=== PATIENT | female | born 1935 | race Caucasian/White ===

== ENCOUNTER 2016-03-18 05:10 | Day surgery (SDC) | payer OTHER, BC ==
[~2016-03-18] VITALS: Ht 149.9 cm; Wt 54.4 kg
--- NOTE | ~2016-03-18 | O ---
[facility] [place] [address] OPERATIVE REPORT Name: KAMILAH ROWLAND ANN Room #: [facility] M..#: [id number] Admission: 03/18/16 Attend Phys: Jack Murcia MD Discharge: 03/18/16 Date of : 31 Report #: [id number] THIS REPORT FOR: //name// CC: Sridhar Murcia DATE OF SERVICE: 03/18/2016 PREOPERATIVE DIAGNOSIS: Suspicious left breast mass, previous lumpectomy for carcinoma in the past. POSTOPERATIVE DIAGNOSIS: Suspicious left breast mass, previous lumpectomy for carcinoma in the past, final pathology pending. OPERATION: 1. Left breast segmental resection. 2. Resection additional skin and breast tissue for better margins. 3. Oncoplastic closure. SURGEON: Jack Murcia MD. LABORER CHEESEMAKING: Medical student MS Jose Guadalupe3. SECOND MEAT MOLDER: Medical student MS Alfredo3. ANESTHESIA: Local with IV sedation. DESCRIPTION OF PROCEDURE: With the patient awake and in the supine position, the left breast was widely prepped with ChloraPrep solution. Sterile drapes were applied. 1% Xylocaine was used as local infiltration anesthesia. The logistics center manager and anesthesiologist administered IV sedation as needed during the procedure. The patient had a suspicious superficial mass coming through the skin at the old lumpectomy scar at the 9 o'clock position in the medial left breast. She had undergone lumpectomy for a cancer in that location in 07/2015. One of the margins was involved and we had recommended going back to get better margins. She refused that and she also refused radiation and adjuvant therapies. She did not come back for followup until recently when she noticed a new somewhat tender mass at that location. I performed a radially oriented elliptical incision in order to remove the entire mass together with surrounding and overlying skin together with the breast tissue at that location in the breast all the way down to and including the pectoralis fascia. The margins were grossly normal. However, I elected to remove additional skin and breast tissue superiorly which was labeled as specimen 2 and additional skin and breast tissue inferiorly which was labeled as specimen 3, both of which were marked with sutures for orientation purposes. I showed these to the pathologist so [address] [address] OPERATIVE REPORT Name: KAMILAH ROWLAND ANN Room #: [facility] M.R.#: [id number] Admission: 03/18/16 Attend Phys: Jack Murcia MD Discharge: 03/18/16 Date of : 31 Report #: [id number] that she could be acquainted with the orientation of the various specimens. The breast tissue was mobilized for oncoplastic closure. It was estimated that greater than 35 square cm of tissue were mobilized. Hemostasis was obtained using electrocautery. The breast tissue and subcutaneous tissues were approximated using interrupted 3-0 Vicryl. It was apparent that the patient had a dog ear at the medial corner of the incision, so I removed additional skin and subcutaneous fat at that location to give her a more pleasing cosmetic outcome. That was submitted as specimen 4. The closure was completed. Sterile dressings were applied. The patient tolerated the procedure well and was taken to recovery in satisfactory condition. Estimated blood loss was 20 mL. <ELECTRONICALLY SIGNED> By: Jack Murcia MD 03/28/16 1827 1416 1441 Jack Murcia MD /nt
--- NOTE | ~2016-03-18 | S ---
[facility] [address] [place] [address] SURGICAL PATH RPT PROCEDURE Name: KAMILAH ROWLAND ANN Room #: DEP [facility] M.R.#: [id number] Admission: 03/18/16 Date of : 31 Discharge: 03/18/16 Report #: [id number] Path Case #: [id number] PATHOLOGY REPORT COLLECTION DATE: 03/18/2016 RECEIVED DATE: 03/19/2016 SUBMITTING PHYS: Dr. Jack Murcia OTHER PHYS: Dr. Sridhar Sharpe SPECIMEN(S) RECEIVED: A.Left breast segmental resection B.Additional left breast skin and breast tissue, superior C.Additional inferior left breast skin and breast tissue D.Additional medial left breast skin * * * * * * * * * * * * FINAL DIAGNOSIS: A. Breast, "#1 left breast segmental resection, long suture lateral, short suture superficial," lumpectomy: - RECURRENT INFILTRATING DUCTAL CARCINOMA GRADE III MEASURING 2.5 CM IN GREATEST DIMENSION, 0.2 CM FROM THE SUPERIOR MARGIN, AND 0.2 CM FROM THE INFERIOR MARGIN COMPLETELY EXCISED. - THE INFILTRATING DUCTAL CARCINOMA INVOLVES THE SKIN AND THE EPIDERMIS WITH ULCERATION (T4b) B. Portion of breast, "#2 additional left breast skin and breast tissue superior, long suture cabrera a new superior margin," lumpectomy: - Skin with underlying breast without atypia or malignancy. - All surgical resection margins are free. C. Portion of breast, "#3 additional inferior left breast skin and breast tissue, long suture cabrera new inferior margin," lumpectomy: - A 1.0 mm focus of infiltrating ductal carcinoma completely excised 1cm from true inferior inked margin. - Immunoperoxidase stain Ae1/AE3 and ER are positive and CD68 is negative ( block C4 ) D. Additional medial left breast skin excision : - Benign skin and subcutaneous tissue. - No evidence of malignancy. Clinical History: Palpable mass Radiologic Finding: Mass or architectural distortion Procedure: Excision without wire-guided localization Lymph Node Sampling: No lymph nodes present Specimen Laterality: Left Tumor Site of Invasive Carcinoma: Central Presence of Invasive Carcinoma: Invasive ductal carcinoma (no special type or not otherwise specified) [address] [address] SURGICAL PATH RPT PROCEDURE Name: KAMILAH ROWLAND Room #: [facility] M.R.#: [id number] Admission: 03/18/16 Date of : 31 Discharge: 03/18/16 Report #: [id number] Path Case #: [id number] Histologic Grade: Tubule formation: Score 3: <10% of tumor area forming glandular/tubular structures Nuclear pleomorphism: Score 3: Vesicular nuclei, often with prominent nucleoli, exhibiting marked variation in size and shape, occasionally with very large and bizarre forms Mitotic Rate: Score 2 (4-7 mitoses per mm2) [place] Histologic Score-Grade III: 8-9 points Ductal Carcinoma In Situ: No DCIS is present Lobular Carcinoma In Situ (LCIS): Not identified Tumor Size: Size of Largest Invasive Carcinoma: Greatest dimension of largest focus of invasion > 1 mm Greatest dimension: 25 mm Skin: Invasive carcinoma directly invades into the dermis or epidermis with skin ulceration (classified as T4b) Satellite foci not identified DCIS does not involve the nipple epidermis No skeletal muscle present Invasive Carcinoma Margins: Margins uninvolved by invasive carcinoma. Distance from closest margin: 10 mm Closest Uninvolved Margin-Inferior DCIS Margins: DCIS not present in specimen Lymph-Vascular Invasion: Not identified Dermal Lymph-Vascular Invasion: Not identified Microcalcifications: Not identified Treatment Effect: No known presurgical therapy [place] lymph node biopsy not performed Estrogen Receptor: Performed on another specimen, number: 840 Progesterone Receptor: Performed on another specimen, number: 840 HER2 Immunoperoxidase Results: Performed on another specimen, number: 840 In Situ Hybridization (FISH or CISH) for HER2 Results: Not performed Other Ancillary Studies: Not performed Primary Tumor (Invasive Carcinoma) (pT): pT4b: Ulceration and/or ipsilateral satellite nodules and/or edema (including peau d`orange) of the skin which do not meet the criteria for inflammatory carcinoma Category (pN): pNX: Regional lymph nodes cannot be assessed [address] [address] SURGICAL PATH RPT PROCEDURE Name: KAMILAH ROWLAND ANN Room #: [facility]P [facility] M.R.#: [id number] Admission: 03/18/16 Date of : 31 Discharge: 03/18/16 Report #: [id number] Path Case #: [id number] Additional Pathologic Findings: none COMMENT: This is a recurrent breast carcinoma. This case is also reviewed by Dr. Kenyetta Fuller. Immunoperoxidase stains were performed on block C4 reveal the following results: AE1/AE3: positive CD68: negative ER : positive. ([facility]:mgr; d/t: 03/20/16) PATHOLOGIST: William Kim M.D. REPORT ELECTRONICALLY SIGNED BY: William Kim M.D. DATE/TIME: 03/21/2016 11:23 * * * * * * * * * * * * GROSS PATHOLOGY: A. The specimen is received fresh labeled "Denisha Rowland, #1 left breast segmental resection, long suture lateral, short suture superficial", oriented by Dr. Jack Murcia. The specimen was collected at 13:42 and put in formalin at 13:50. Dr. Jack Murcia indicated that the patient has a history of breast carcinoma. ([facility]:all; d/t: 03/18-01/2017) Received is a 29 g lumpectomy specimen oriented with a short suture designating the superficial/anterior margin and a long suture designating the lateral margin. The specimen is composed of an ellipse of skin with attached yellow-cassidy lobulated tissue measuring 8.3 cm from medial to lateral, 4.2 cm from superficial/anterior to deep/posterior, and 3.0 cm from superior to inferior. On the epidermal surface, there is a well-circumscribed, raised, partially crusted and pink-cassidy to light cassidy lesion measuring 2.3 x 2.2 x 0.5 cm, which is 0.6 cm from the closest skin margin. The specimen is inked as follows: Superior-blue, inferior-green, lateral-red, medial-yellow, deep/posterior-orange. Sectioning reveals a well-circumscribed white-cassidy mass, directly underlying the aforementioned skin lesion, measuring 2.5 x 2.2 x 1.5 cm. This mass grossly abuts the superficial/anterior margin, grossly abuts the superior margin, grossly approaches the inferior margin, is 2.5 cm from the lateral margin, 2.8 cm from the medial margin, and 2.8 cm from the deep/posterior margin. The remainder the specimen displays no-cassidy fibrofatty breast tissue. The specimen is submitted representatively as follows: A1 most lateral margin A2 mass medial margin [facility] [address] [place] [address] SURGICAL PATH RPT PROCEDURE Name: KASHIFKAMILAH LEWIS ANN Room #: DEP [facility] M.R.#: [id number] Admission: 03/18/16 Date of : 31 Discharge: 03/18/16 Report #: [id number] Path Case #: [id number] entire mass submitted from lateral to medial aspects. The total formalin fixation time is 29 hours and 55 minutes. (CAA; 03/19/2016) B. The specimen is received fresh labeled "Denisha Rowland, #2 additional left breast skin and breast tissue superior long suture cabrera new superior margin". The tissue was collected at 13:45 and was placed in formalin at 13:55. (SHA:all; d/t: 03/18-01/2017) Received is a 9 g lumpectomy specimen oriented with a long suture designating the new margin. The specimen is composed of an ellipse of pale cassidy, grossly unremarkable skin with attached yellow-cassidy lobulated tissue measuring 6.1 x 2.5 x 1.5 cm in greatest dimensions. The specimen is inked as follows: New margin-blue, old margin-black. Sectioning reveals bright yellow, lobulated cut surfaces with no grossly distinct nodules or lesions. The specimen is submitted representatively in cassettes B1 through B6. The cold ischemic time is 10 minutes. The total formalin fixation time is 29 hours and 50 minutes. (CAA; 03/19/2016) C. The specimen is received fresh labeled "Denisha Rowland, #3 additional inferior left breast skin and breast tissue, long suture cabrera new inferior margin". The tissue was collected at 13:51 and was put in formalin at 13:55. Sections will be submitted after fixation. (SHA:all; d/t: ) Received is a 5 g lumpectomy specimen oriented with a long suture designating the new inferior margin. The specimen is composed of an ellipse of pale cassidy, grossly abnormal skin with attached yellow-cassidy lobulated tissue measuring 8.5 x 1.5 x 1.8 cm in greatest dimensions. The specimen is inked as follows: New margin-blue, old margin-black. Sectioning reveals bright yellow, lobulated cut surfaces with no grossly distinct nodules or lesions. The specimen is submitted representatively in cassettes C1 through C6. The cold ischemic time is 4 minutes. The total formalin fixation time is 29 hours and 50 minutes. (CAA; 03/19/2016) D. Received fresh labeled "Denisha Rowland, #4 additional medial left breast skin". No formalin times are given. (SHA:all; d/t: 03/18-01/2017) Received is a 5 g unoriented segment of pale cassidy, grossly normal skin with attached white-cassidy lobulated tissue measuring 5.5 x 3.1 x 1.8 cm in greatest dimensions. The surgical margin is inked black. Sectioning reveals bright yellow, lobulated cut surfaces with no grossly distinct nodules or lesions. Alternating sections are submitted in cassettes D1 through D4. The cold ischemic time and time in formalin are not provided. The time out of formalin is 7:45 PM on 03/19/2016. (CAA; 03/19/2016) [address] [address] SURGICAL PATH RPT PROCEDURE Name: KAMILAH ROWLAND Room #: [facility] M.R.#: [id number] Admission: 03/18/16 Date of : 33 Discharge: 03/18/16 Report #: [id number] Path Case #: [id number] CLINICAL HISTORY: Breast carcinoma. Left breast mass, previous lobectomy for cancer INITIAL CPT CODE(S): A; 95957 B; 93526 C; 79743, 82103, 80237, 22680 D; 67995 Professional services performed by [facility] at [place] [address], [place] [address] Technical services performed by [facility] at [address] [place] [address], [facility] [address], [place] [address]. [facility] [address] [place] [address] PHONE: [phone] DIRECTOR: Garry Moss M.D. * * * END OF REPORT * * *
[~2016-03-18 05:10] MED LIST: ACCURETIC 20-21 EACH PO; ADULT LOW DOSE81 MG PO; AFRIN15 ML NASAL; ARICEPT 5 MG TAB5 MG PO; BACTRIM DS TAB1 EACH PO; CALCIUM 600 MG1 EAC3 PO; CALMOSEPTINE O3.5 GM TP; CLEOCIN HCL150 MG PO; CYMBALTA30 MG PO; DOXYCYCLINE 10100 M1 PO; ENABLEX15 MG PO; HYDROCODON-ACE1 EAC7 PO; IBUPROFEN 200200 M1 PO; IBUPROFEN200 M2 PO; INDOMETHACIN 2525 MG PO; MILK OF MA2400 MG/10 PO; MULTIVITAMINS PO; NORCO 5-325 TA1 EACH PO; PEPCID20 MG PO; PEPCID40 MG PO; PERCOCET 5-3251 EACH PO; PLAVIX 75 MG TA75 M1 PO; PLAVIX 75 MG TA75 MG PO; PRAVACHOL40 MG PO; PRAVASTATIN SOD20 MG PO; PRILOSEC 20 MG20 MG PO; PRILOSEC40 MG PO; QUINU10 PD PO; SULINDAC 150 M150 MG PO; TRAMADOL 50 MG50 MG PO; TRICOR145 MG PO; ULTRAM 50MG TAB50 MG PO; VICODIN 5-5001 EACH PO; VOLTAREN GEL 1100 G1; VOLTAREN GEL 1100 G2 TOP; VYTORIN 10-401 EACH PO; ZOFRAN ODT4 MG PO
[2016-03-18 12:31] LABS: HEMATOCRIT 31.5 % (37.0-47.0); HEMOGLOBIN 10.2 gm/dL (12.0-15.0); MCH 26.8 pg (26.0-34.0); MCHC 32.4 % (28.0-37.0); MCV 82.6 fL (80.0-100.0); RBC 3.81 mil/uL (4.20-5.00); WBC 7.5 thou/uL (4.0-11.0)
[2016-03-18 12:42] LABS: CALCIUM 9.1 mg/dL (8.5-10.1); CREATININE 0.9 mg/dL (0.6-1.3); POTASSIUM 4.2 mmol/L (3.5-5.1)
[2016-03-18 12:48] LABS: ALBUMIN 3.5 g/dL (3.4-5.0); TOTAL BILIRUBIN 0.7 mg/dL (<0.1-1.0); TOTAL PROTEIN 6.8 g/dL (6.4-8.2)
[2016-03-18 13:00] VITALS: BP 148/65
== END 2016-03-18 15:15 | disposition home or self-care (01) ==
LOC: OR 05:10 → TBA 05:10 → OR 09:02
PROVIDERS: Specialist
DX: C50.912 Malignant neoplasm of unspecified site of left female breast (principal); F32.9 Major depressive disorder, single episode, unspecified; F41.9 Anxiety disorder, unspecified; G47.33 Obstructive sleep apnea (adult) (pediatric); I10 Essential (primary) hypertension; K21.9 Gastro-esophageal reflux disease without esophagitis; Z96.652 Presence of left artificial knee joint; Z98.42 Cataract extraction status, left eye; Z98.41 Cataract extraction status, right eye; Z96.1 Presence of intraocular lens; M19.90 Unspecified osteoarthritis, unspecified site
CPT/HCPCS: 50010; 50101; 50386; 50403; 56524; 56526; 62110; 62850; 70005

== ENCOUNTER 2016-05-28 22:23 | Inpatient (IN) | payer OTHER, BC ==
[~2016-05-28] VITALS: Ht 157.5 cm; Wt 54.4 kg
--- NOTE | ~2016-05-28 | H ---
[facility] [place] [address] HISTORY AND PHYSICAL Name: KASHIFNAIMA Room #: 444-P [facility] M.R.#: [id number] Admission: 05/29/16 Attend Phys: Tasneem Serrano Discharge: 06/02/16 Date of : 33 Report #: [id number] THIS REPORT FOR: //name// CC: Shahida Wiseman ATTENDING PHYSICIAN: Dr. Dhara Wiseman. PRIMARY CARE PHYSICIAN: Dr. Sridhar Sharpe. CHIEF COMPLAINT: Low hemoglobin. HISTORY OF PRESENT ILLNESS: The patient is an 80-year-old female with a history of dementia who was therefore a very poor historian and apparently she was noticed to have some blood in her stool, by the staff at her assisted living facility. She had some routine blood work done which did show a decrease in hemoglobin from her previous labs, her hemoglobin was found to be and her last known hemoglobin was 10.2 in 03/2016. She has not noticed any rectal bleeding herself. She denies any rectal pain. Denies any abdominal pain. She has never had any previous GI bleeding. She is on Plavix and has been on it for many years possibly for TIA. She had been off Plavix briefly in March when she underwent a lumpectomy, but that Plavix was restarted in April. She denies any dizziness or lightheadedness, but she normally does not ambulate much and gets around in a wheelchair. Her vitals have been stable since arrival. PAST MEDICAL HISTORY: Dementia, hypertension, hyperlipidemia, GERD, TIA, breast cancer, questionable bladder cancer, depression. PAST SURGICAL HISTORY: Left total knee replacement, shoulder repair, bilateral cataract repair, partial mastectomy on the left in 07/2015 followed by left breast segmental resection for recurrent breast cancer in 03/2016. ALLERGIES: PENICILLIN CAUSES A RASH. HOME MEDICATIONS: Donepezil 10 mg at bedtime, iron 325 mg b.i.d., Plavix 75 mg daily, pravastatin 40 mg at bedtime, quinapril 10 mg daily, diclofenac topical gel q.i.d., tramadol 50 mg b.i.d., Cymbalta 60 mg daily, Pepto-Bismol p.r.n., milk of magnesia p.r.n., MiraLax daily and Mylanta p.r.n. SOCIAL HISTORY: The patient denies any tobacco, alcohol or drug use. She lives at assisted living facility. She does have spouse but he lives in their own home. She says she gets around in a wheelchair and really does not ambulate on her own. FAMILY HISTORY: Unobtainable due to confusion. REVIEW OF SYSTEMS: 12-point review of systems was reviewed with the patient, [address] [address] HISTORY AND PHYSICAL Name: KAMILAH ROWLAND Room #: 444-P DIS IN M.R.#: [id number] Admission: 05/29/16 Attend Phys: Tasneem Alejandro Discharge: 06/02/16 Date of : 33 Report #: [id number] otherwise negative unless stated in the HPI and previous records were reviewed as well. PHYSICAL EXAMINATION: GENERAL: The patient is an alert, but confused female in no acute distress. VITAL SIGNS: Temperature is 36.9, heart rate 80, respirations 14, blood pressure is 160/73, oxygen 97% on room air. HEENT: PERRLA. Sclerae is nonicteric. Oral mucosa is pink and dry. NECK: Supple, no JVD noted. CARDIOVASCULAR: Normal S1, S2. No murmurs, rubs or gallops. RESPIRATORY: Breath sounds are clear bilaterally. No wheezing or rhonchi. Breathing is nonlabored. ABDOMEN: Soft and nontender, nondistended with positive bowel sounds. VASCULAR: No edema noted. Pedal pulses are 2+. NEUROLOGIC: The patient is alert and oriented x 2. She was unable to tell me the current month, but was able to say was 2017 and current president. She is overall a very poor historian and forgetful. She will follow commands. She is moving her arms and legs equally. SKIN: Intact. No rashes or lesions, but pale. LABORATORY DATA: WBC is 7.8, hemoglobin 7.1 and platelets 267. Sodium 140, potassium 3.9, BUN is 19, creatinine 0.8, glucose 101. LFTs are within normal limits and EKG showing sinus rhythm. INR is 1.0 ASSESSMENT AND PLAN: 1. Severe anemia. This is new onset likely related to acute blood loss and although she has not had any active bleeding since arrival. We will go ahead and follow serial H and H and transfuse blood if hemoglobin drops less than 7. Her last known hemoglobin was 10.1 in March of this year. We will hold Plavix. 2. GI bleed. She did have occult positive test on the stool from her assisted living facility. She is not having any active bleeding since arrival. GI is consulted and Plavix will be held. 3. Hypertension. Blood pressure is stable. Continue as at home. 4. Dementia. The patient is at baseline. Continue to monitor. 5. CODE STATUS: The patient is a DNR per snf records. 6. Recently recurrent breast cancer. The patient underwent another breast resection in March, I did not know if she has undergone any further treatments since that time. 7. Deep venous thrombosis prophylaxis, place sequential compression devices. [facility] [address] [place] [address] HISTORY AND PHYSICAL Name: KAMILAH ROWLAND Room #: 444-P DIS IN M.R.#: [id number] Admission: 05/29/16 Attend Phys: Tasneem Alejandro Discharge: 06/02/16 Date of : 33 Report #: [id number] We will continue to follow the patient closely throughout the hospitalization and make changes based on clinical status. <ELECTRONICALLY SIGNED> By: JT Tate 06/03/16 0658 0616 0648 JT Tate /nt
--- NOTE | ~2016-05-28 | S ---
[facility] [place] [address] SURGICAL PATH RPT PROCEDURE Name: KAMILAH ROWLAND Room #: 444-P ADM IN M.R.#: [id number] Admission: 05/29/16 Date of : 33 Discharge: Report #: [id number] Path Case #: [id number] PATHOLOGY REPORT COLLECTION DATE: 05/30/2016 RECEIVED DATE: 05/31/2016 SUBMITTING PHYS: Dr. Domingo Malik OTHER PHYS: Dr. Dhara Franco SPECIMEN(S) RECEIVED: A.Polyp 70cm B.Polyp bx @ 40cm * * * * * * * * * * * * FINAL DIAGNOSIS: A. "Polyp 70 cm," biopsy: - Tubular adenoma; no high-grade dysplasia. B. "Polyp bx at 40 cm," biopsy: - Tubular adenoma; no high-grade dysplasia. (CLW:; d/t: 06/02/16) PATHOLOGIST: Kenyetta Fuller M.D. REPORT ELECTRONICALLY SIGNED BY: Kenyetta Fuller M.D. DATE/TIME: 06/02/2016 14:54 * * * * * * * * * * * * GROSS PATHOLOGY: A. Received in formalin labeled "Kamilah Rowland, polyp 70 cm," are three segments of cassidy soft tissue measuring 0.6 x 0.5 x 0.1 cm in aggregate dimensions and ranging from 0.3 to 0.4 cm in maximum dimension. The specimen is submitted entirely in cassette A1. B. Received in formalin labeled "Kamilah Rowland, polyp biopsy at 40 cm," is a segment of cassidy soft tissue measuring 0.3 cm in maximum dimension. The specimen is submitted entirely in cassette B1. (CAA; 05/31/2016) CLINICAL HISTORY: Anemia, blood in stool, colon polyps INITIAL CPT CODE(S): A; 74152 B; 82140 [facility] [address] [place] [address] SURGICAL PATH RPT PROCEDURE Name: KAMILAH ROWLAND Room #: 444-P ADM IN M.R.#: [id number] Admission: 05/29/16 Date of : 31 Discharge: Report #: [id number] Path Case #: [id number] [address] [facility] , [place] [address] Technical services performed by [facility] at [address] [place] [address], [facility] [address], [place] [address]. [facility] [place] [address] PHONE: [phone] DIRECTOR: Garry Moss M.D. * * * END OF REPORT * * *
--- NOTE | ~2016-05-28 | EKG ---
[place] [address] [facility] [place] [address] ELECTROCARDIOGRAM REPORT Name: KAMILAH ROWLAND ANN Room #: 444-P ADM IN M.R.#: [id number] Admission: 05/29/16 Attend Phys: Dhara Wiseman MD Discharge: Date of : 31 Report #: [id number] THIS REPORT FOR: //name// [facility] ED Test Date: 2016-05-28 Test Time: 22:53:19 Pat Name: KAMILAH ROWLAND Department: Room: 444 Gender: F Deputy Bailiff: KKODJOVI : 1935 Requested By: Yoav Loya Order Number: [id number] MD: Benjamin Alberto Measurements Intervals [place]is Rate: 79 P: 37 UT: 197 QRS: 30 QRSD: 92 T: 34 QT: 414 QTc: 475 Interpretive Statements Sinus rhythm Borderline low voltage, extremity leads Abnormal R-wave progression, early transition Compared to ECG 01/20/2016 14:16:14 No significant changes Electronically Signed On 05-29-2016 8:31:18 CDT by Benjamin Alberto [email or web address] <ELECTRONICALLY SIGNED> By: Benjamin Alberto MD, [facility] 05/29/16 0831 2253 2253 Benjamin Alberto MD, [facility] /EPI
--- NOTE | ~2016-05-28 | P ---
[facility] [place] [place] [address] PROCEDURE REPORT Name: KAMILAH ROWLAND Room #: 444-P ADM IN M.R.#: [id number] Admission: 05/29/16 Attend Phys: Omer Oconnell MD Discharge: Date of : 33 Report #: [id number] THIS REPORT FOR: //name// CC: Shahida Oconnell BRIEF HISTORY: The patient is an 80-year-old male who was admitted with Hemoccult positive stools and found to have an iron deficiency anemia. She does have previous history of ulcer disease. She has no GI symptoms at this time. PREOPERATIVE DIAGNOSES: Iron deficiency anemia, Hemoccult-positive stools. POSTOPERATIVE DIAGNOSES: 1. Abnormal configuration of stomach, questionably large hiatus hernia, cannot fully exclude a gastric volvulus. 2. Erosive esophagitis. SPECIMEN: None. ESTIMATED BLOOD LOSS: None. PROCEDURE: EGD. FINDINGS: Prior to propofol sedation, procedure of upper endoscopy discussed with the patient, all potential risks and its complications. She indicates she understands and desires to proceed. DESCRIPTION OF PROCEDURE: With the patient in left lateral decubitus position, the [employer] video endoscope was inserted in the cervical esophagus under direct vision without difficulty. Examination of this organ through its entire length revealed normal esophageal mucosa down the squamocolumnar junction. There were erosive changes involving the entire circumference. No masses or strictures were seen. Obvious Flaherty mucosa was not seen. The scope was advanced into the stomach. However, the scope easily retroflexed and I had extreme difficulty finding the outlet. Therefore, I believe she likely has a very large hiatus hernia. She also may have a gastric volvulus. That was difficult to determine, but possibility. Interestingly, the outlet of the stomach appeared to be about the same level as the gastroesophageal junction. With use of the stiffening wire, I was able to pass the scope through that narrow passage and then could see the pylorus. With reduction of loops, I was able to advance the scope into the duodenum. The duodenal bulb and ____ sweep were inspected and noted to be within normal limits. Normal villous pattern was seen. No ulcers were seen. The scope was drawn back into the stomach. On this occasion there was a different view. It is possible she could have had a gastric volvulus, which unfolded with manipulation of the scope. However, the region of the pylorus and antrum appeared to be at the same level as the gastroesophageal junction, best [facility] [address] [place] [address] PROCEDURE REPORT Name: KAMILAH ROWLAND ANN Room #: 444-P [facility] IN .R.#: [id number] Admission: 05/29/16 Attend Phys: Omer Oconnell MD Discharge: Date of : 33 Report #: [id number] seen in the retroflexed position. Scope was withdrawn. The patient tolerated the procedure well. DISPOSITION: The patient with anemia and Hemoccult positive stools. She does have esophagitis. We will proceed with colonoscopy at this time. She has what I believe is a large hiatus hernia and possibly also gastric volvulus, which may have been unraveled. We will obtain a CT for further evaluation. We will proceed with colonoscopy at this time. By: [id number] Domingo Malik MD /nt
--- NOTE | ~2016-05-28 | P ---
[facility] [place] [address] PROCEDURE REPORT Name: KAMILAH ROWLAND Room #: 444-P ADM IN M.R.#: [id number] Admission: 05/29/16 Attend Phys: Omer Oconnell MD Discharge: Date of : 33 Report #: [id number] THIS REPORT FOR: //name// CC: Shahida Oconnell BRIEF HISTORY: The patient is an 80-year-old woman who was found to have Hemoccult positive stools and iron deficiency anemia. It has been many years since her last colonoscopy. PREOPERATIVE DIAGNOSES: Anemia and Hemoccult-positive stools. POSTOPERATIVE DIAGNOSES: 1. Colon polyps. 2. Moderate sigmoid diverticulosis coli. MEDICATIONS: Deep sedation with propofol per anesthesia. SPECIMEN: 1. Polyp from 70. 2. Polyp from 40. ESTIMATED BLOOD LOSS: 3 mL. PROCEDURE: Colonoscopy to cecum with snare polypectomy and biopsy. FINDINGS: Prior to propofol sedation, procedure of colonoscopy discussed with the patient as well as potential risks and its complications. She indicates she understands and desires to proceed. DESCRIPTION OF PROCEDURE: With the patient in left lateral decubitus position, digital examination was completed which revealed no abnormalities. Subsequently, the [employer] video colonoscope was introduced into the rectum and advanced under direct vision to the cecum. Done with minimal difficulty. The cecum was identified by the ileocecal valve and the appendiceal orifice. I was able to see the ileocecal valve, but due to looping could not cross the ileocecal valve. At that point, the scope was slowly withdrawn and careful circumferential views obtained. Overall, the prep was good. Mucosa normal limits, normal vascular pattern, normal light reflex. Upon withdrawal of the scope, a 5 mm polyp was seen at 70 cm, removed by cold snare polypectomy. A diminutive polyp seen and removed by biopsy at 40 cm. In the sigmoid colon, there was moderate sigmoid diverticular disease without endoscopic evidence of diverticulitis. Scope was withdrawn in the rectum. Upon retroflexion, no abnormalities were seen. Scope was withdrawn. The patient tolerated the procedure well. [facility] [address] [place] [address] PROCEDURE REPORT Name: KAMILAH ROWLAND Room #: 444-P [facility] IN ..#: [id number] Admission: 05/29/16 Attend Phys: Omer Oconnell MD Discharge: Date of : 33 Report #: [id number] CONDITION OF THE PATIENT UPON DISCHARGE: Following procedure, the patient drowsy, aroused and conversant. DISPOSITION: The patient with iron deficiency anemia. I do not find bleeding lesions, no evidence of colon cancer. As far as anemia, this may be coming from the upper GI tract, please report for additional comments. We will follow up on the path and make further recommendations. However, at this point in life, she is not likely to be benefitted to repeat surveillance colonoscopy. By: [id number] Domingo Malik MD /chantel
[2016-05-28 22:24] VITALS: BP 160/73
[2016-05-28] MEDS ORDERED: VOLTAREN GEL 1100 G2 TOP (22:42)
[2016-05-28] MEDS ORDERED: IRON325 PO (22:43)
[2016-05-28] MEDS ORDERED: RISAMINE OINTM113 GM (22:43)
[2016-05-28] MEDS ORDERED: PEPTO-BISM262 MG/15 (22:44)
[2016-05-28] MEDS ORDERED: mylanta (22:44)
[2016-05-28 22:45] LABS: HEMATOCRIT 22.7 % (37.0-47.0); HEMOGLOBIN 7.1 gm/dL (12.0-15.0); MCH 20.6 pg (26.0-34.0); MCHC 31.1 g/dL (28.0-37.0); MCV 66.2 fL (80.0-100.0); RBC 3.43 mil/uL (4.20-5.00); RDW 19.6 % (10.5-14.5); WBC 7.8 thou/uL (4.0-11.0)
[2016-05-28] MEDS ORDERED: MIRALAX17 GM PO (22:45)
[2016-05-28 22:53] LABS: CALCIUM 8.5 mg/dL (8.5-10.1); CREATININE 0.8 mg/dL (0.6-1.3); POTASSIUM 3.9 mmol/L (3.5-5.1)
[2016-05-28 22:56] LABS: APTT 26.1 Seconds (24.5-32.8); PROTIME 10.4 Seconds (9.3-11.4)
[2016-05-28 22:58] LABS: ALBUMIN 3.3 g/dL (3.4-5.0); TOTAL BILIRUBIN 0.3 mg/dL (<0.1-1.0); TOTAL PROTEIN 6.4 g/dL (6.4-8.2)
[2016-05-29] VITALS (7 sets, daily range): BP systolic 113–181; BP diastolic 49–103
[2016-05-29 06:17] LABS: HEMATOCRIT 21.2 % (37.0-47.0)
[2016-05-29 06:28] LABS: HEMOGLOBIN 6.4 gm/dL (12.0-15.0)
[2016-05-29 06:37] LABS: % SATURATION 4 % (20-39); IRON 12 ug/dL (50-170); TIBC 287 ug/dL (250-450); UIBC 275 ug/dL
[2016-05-29 07:05] LABS: FOLIC ACID 9.8 ng/mL (8.6-58.9)
[2016-05-29 21:26] LABS: HEMATOCRIT 37.7 % (37.0-47.0); HEMOGLOBIN 12.2 gm/dL (12.0-15.0)
[2016-05-30 00:38] LABS: HEMATOCRIT 34.4 % (37.0-47.0); HEMOGLOBIN 11.1 gm/dL (12.0-15.0)
[2016-05-30 04:20] VITALS: BP 168/106
[2016-05-30 05:25] LABS: HEMATOCRIT 34.6 % (37.0-47.0); HEMOGLOBIN 11.1 gm/dL (12.0-15.0); MCH 23.3 pg (26.0-34.0); MCHC 32.2 g/dL (28.0-37.0); RBC 4.78 mil/uL (4.20-5.00); RDW 23.7 % (10.5-14.5); WBC 8.6 thou/uL (4.0-11.0)
[2016-05-30 05:58] LABS: MCV 72.3 fL (80.0-100.0)
[2016-05-30 06:06] LABS: CALCIUM 8.8 mg/dL (8.5-10.1); CREATININE 0.7 mg/dL (0.6-1.3); POTASSIUM 3.8 mmol/L (3.5-5.1)
[2016-05-30 08:56] VITALS: BP 137/61
[2016-05-30 11:28] VITALS: BP 157/74
[2016-05-30 16:04] VITALS: BP 145/90
[2016-05-30 17:24] VITALS: BP 143/89
[2016-05-30 20:45] VITALS: BP 140/78
[2016-05-31 04:10] VITALS: BP 150/84
[2016-05-31 05:21] LABS: HEMATOCRIT 35.8 % (37.0-47.0); HEMOGLOBIN 11.4 gm/dL (12.0-15.0); MCH 22.8 pg (26.0-34.0); MCHC 31.9 g/dL (28.0-37.0); MCV 71.7 fL (80.0-100.0); RBC 4.99 mil/uL (4.20-5.00); RDW 24.1 % (10.5-14.5); WBC 11.2 thou/uL (4.0-11.0)
[2016-05-31 08:26] VITALS: BP 177/93
[2016-05-31 11:30] VITALS: BP 155/94
[2016-05-31 16:17] VITALS: BP 147/86
[2016-05-31 20:40] VITALS: BP 154/86
[2016-06-01 04:50] VITALS: BP 146/82
[2016-06-01 05:33] LABS: HEMATOCRIT 34.3 % (37.0-47.0); HEMOGLOBIN 10.9 gm/dL (12.0-15.0); MCH 23.1 pg (26.0-34.0); MCHC 31.9 g/dL (28.0-37.0); MCV 72.3 fL (80.0-100.0); PLATELET COUNT 257 thou/uL (150-400); RBC 4.74 mil/uL (4.20-5.00); RDW 24.9 % (10.5-14.5)
[2016-06-01 05:35] LABS: MANUAL DIFF YES
[2016-06-01 05:49] LABS: ALBUMIN 3.2 g/dL (3.4-5.0); CALCIUM 8.5 mg/dL (8.5-10.1); CREATININE 0.8 mg/dL (0.6-1.3); POTASSIUM 3.2 mmol/L (3.5-5.1); TOTAL BILIRUBIN 1.3 mg/dL (<0.1-1.0); TOTAL PROTEIN 6.1 g/dL (6.4-8.2)
[2016-06-01 06:00] LABS: ABSOLUTE NEUTROPHILS 8.7 thou/uL (1.4-8.2); TOTAL CELL COUNT 100
[2016-06-01 06:01] LABS: HYPOCHROMASIA 2+; MICROCYTES 2+; PLATELET ESTIMATE NORMAL
[2016-06-01 06:02] LABS: ANISOCYTOSIS 1+
[2016-06-01 08:53] VITALS: BP 148/80
[2016-06-01 11:43] VITALS: BP 142/80
[2016-06-01 16:24] VITALS: BP 122/74
[2016-06-01 20:19] VITALS: BP 128/68
[2016-06-02 04:42] VITALS: BP 119/68
[2016-06-02 06:28] LABS: HEMATOCRIT 32.8 % (37.0-47.0); HEMOGLOBIN 10.6 gm/dL (12.0-15.0); MCH 23.6 pg (26.0-34.0); MCHC 32.3 g/dL (28.0-37.0); MCV 73.2 fL (80.0-100.0); RBC 4.49 mil/uL (4.20-5.00); RDW 25.6 % (10.5-14.5); WBC 9.3 thou/uL (4.0-11.0)
[2016-06-02 08:00] VITALS: BP 131/63
[2016-06-02 12:00] VITALS: BP 128/66
== END 2016-06-02 15:15 | disposition home or self-care (01) | DRG 378 ==
LOC: ER 22:23 → EROBS 05-29 00:05 → 4S 05-29 00:05
PROVIDERS: Emergency Medicine; Family Medicine; Hospitalist; Nurse Practitioner Acute Care; Nurse Practitioner Family
DX: K92.2 Gastrointestinal hemorrhage, unspecified (principal); D62 Acute posthemorrhagic anemia; K22.10 Ulcer of esophagus without bleeding; D12.0 Benign neoplasm of cecum; K57.30 Diverticulosis of large intestine without perforation or abscess without bleeding; E78.5 Hyperlipidemia, unspecified; K44.9 Diaphragmatic hernia without obstruction or gangrene; Z66 Do not resuscitate; M19.90 Unspecified osteoarthritis, unspecified site; I10 Essential (primary) hypertension; K59.00 Constipation, unspecified; D72.829 Elevated white blood cell count, unspecified; K21.9 Gastro-esophageal reflux disease without esophagitis; G30.9 Alzheimer's disease, unspecified; F02.80 Dementia in other diseases classified elsewhere, unspecified severity, without behavioral disturbance, psychotic disturbance, mood disturbance, and anxiety; F32.9 Major depressive disorder, single episode, unspecified; Z96.652 Presence of left artificial knee joint; Z85.3 Personal history of malignant neoplasm of breast; Z85.51 Personal history of malignant neoplasm of bladder; Z87.81 Personal history of (healed) traumatic fracture; Z86.73 Personal history of transient ischemic attack (TIA), and cerebral infarction without residual deficits; Z98.42 Cataract extraction status, left eye; Z98.41 Cataract extraction status, right eye; Z88.0 Allergy status to penicillin
CPT/HCPCS: 10100; 62110; 62900

== ENCOUNTER 2016-11-15 11:35 | Inpatient (IN) | payer OTHER, BC ==
[~2016-11-15] VITALS: Ht 149.9 cm; Wt 60.3 kg
[2016-11-15] VITALS (37 sets, daily range): BP systolic 81–142; BP diastolic 47–125
--- NOTE | ~2016-11-15 | HC ---
[facility] [place] [address] CONSULTATION Name: KAMILAH ROWLAND Room #: 211-P [facility] IN M.R.#: [id number] Admission: 11/15/16 Attend Phys: Nicol Waters MD Discharge: 11/26/16 Date of : 33 Report #: [id number] THIS REPORT FOR: //name// CC: Shahida Waters DATE OF SERVICE: 11/15/2016 REASON FOR CONSULTATION: Hypoxia and hypertension. IMPRESSION: 1. Cehvt-gv-gbbggau hypoxemic respiratory failure. 2. Hypertension, question sepsis versus dehydration. 3. Recent pneumonia. 4. Recent pain pump. 5. History of gastrointestinal bleed. 6. Dementia. 7. Recurrent breast cancer. 8. Leukocytosis. PLAN: We will run a sepsis protocol, may do an echocardiogram, ID to see. Follow up lab and x-ray in a.m. Ulcer prophylaxis. DVT prophylaxis. HISTORY OF PRESENT ILLNESS: An 81-year-old female who came to the ER from [facility] with decreased mental status, shortness of breath, and history of MRSA. Discussed with at bedside who relates she was recently in [facility] with pneumonia. She was breathing quickly when she left there. PAST SURGICAL HISTORY: Left total knee in 2010, pain pump in September of this year, right shoulder hemiarthroplasty, bilateral cataracts, and left breast biopsy and lumpectomy. HOME MEDICATIONS: Include diclofenac, ferrous sulfate, quinapril, Plavix, tramadol, donepezil, and pravastatin. ALLERGIES: PENICILLIN. SOCIAL HISTORY: Negative tobacco or ETOH per chart. REVIEW OF SYSTEMS: Unobtainable from the patient. Positive fever, confusion, history of hypertension, GERD, dementia, depression, and history of SUJEY in the past, was on CPAP. She uses a wheelchair. FAMILY HISTORY: Unobtainable. [facility] [address] [place] [address] CONSULTATION Name: KAMILAH ROWLAND Room #: 211-P DIS IN .R.#: [id number] Admission: 11/15/16 Attend Phys: Nicol Waters MD Discharge: 11/26/16 Date of : 33 Report #: [id number] PHYSICAL EXAMINATION: VITAL SIGNS: Temperature 98.6, pulse 94, respiratory rate 22, and BP 102/55. EYES: Negative icterus. NECK: Trachea midline. LUNGS: Coarse bilaterally, crackles. HEART: Regular. ABDOMEN: Bowel sounds present. EXTREMITIES: No calf tenderness, seem to move all extremities. Discussed with at bedside. LABORATORY DATA AND DIAGNOSTICS: EKG showed prolonged QT, possible ischemia. Chest x-ray showed bilateral infiltrates, effusions, and atelectasis. BUN 21, creatinine 1.5, and glucose 160. Albumin 2.8. CPK 19. Troponin 0.04. The pH of 7.550, pCO2 of 36, and pO2 of 61, on 4 liters. UA showed bacteria 1-9, leukocyte 1+, blood 1+, and salicylate less than 2.8. White count 25, hemoglobin 13.4, and platelets 305. No bands. We will follow closely with you. Forty minutes of critical care time. <ELECTRONICALLY SIGNED> By: Harley Isaacs MD 11/27/16 0003 1438 0149 Harley Isaacs MD /nt
--- NOTE | ~2016-11-15 | 2DMMODE ---
[facility] [address] [place] [address] 2 D/M-MODE ECHOCARDIOGRAM Name: KAMILAH ROWLAND Room #: 246-P ADM IN M.R.#: [id number] Admission: 11/15/16 Attend Phys: Nicol Waters MD Discharge: Date of : 33 Date of Service: 11/17/16 0953 Report #: [id number] THIS REPORT FOR: //name// APPROVED REPORT Study performed: 11/17/2016 07:51:21 EXAM: Comprehensive 2D, Doppler, and color-flow Echocardiogram Patient Location: Bedside Room #: 246 Status: routine BSA: 1.47 HR: 110 bpm BP: 115/59 mmHg Other Information Study Quality: Adequate Indications Congestive Heart Failure Dyspnea Hypertension/HDD 2D Dimensions RVDd: 31.71 mm LVEF(%): 53.56 (>50%) IVSd: 16.08 (7-11mm) LVOT Diam: 17.65 (18-24mm) LVDd: 30.57 mm PWd: 13.95 (7-11mm) Ascending Ao: 29.92 (22-36mm) LVDs: 22.43 (25-40mm) Aortic Root: 30.14 mm IVC: 24.00 mm Joseph's LVEF: 53.56 % Volumes Left Atrial Volume (Systole) Single Plane 4CH: 57.58 mL Single Plane 2CH: 57.30 mL LA ESV Index: 41.00 mL/m2 Aortic Valve AoV Peak Josh.: 2.31 m/s AO Peak Gr.: 21.32 mmHg LVOT Max P.00 mmHg AO Mean Gr.: 11.02 mmHg LVOT Mean P.82 mmHg AO V2 Mean: 1.55 m/s LVOT Max V: 1.23 m/s AO V2 VTI: 39.24 cm LVOT Mean V: 0.77 m/s TRINI (VTI): 1.36 cm2 LVOT V1 VTI: 21.80 cm TRINI Vmax: 1.31 cm2 [facility] [address] [place] [address] 2 D/M-MODE ECHOCARDIOGRAM Name: KASHIFKAMILAH Room #: 246-P [facility] IN ..#: [id number] Admission: 11/15/16 Attend Phys: Nicol Waters MD Discharge: Date of : 33 Date of Service: 11/17/16 0953 Report #: [id number] SV (LVOT): 53.34 mL Mitral Valve MV Decel. Time: 103.97 ms MV E Max Josh.: 1.33 m/s Pulmonary Valve PV Peak Josh.: 1.65 m/s PV Peak Gr.: 10.82 mmHg Tricuspid Valve TR Peak Josh.: 3.79 m/s RAP Estimate: 15.00 mmHg TR Peak Gr.: 57.37 mmHg Left Ventricle The left ventricle is normal size. Distal septal, anterolateral, and apical hypokinesis Mild to moderate concentric left ventricular hypertrophy. Left ventricular systolic function is moderately decreased. LVEF is 40-45%. This study is not technically sufficient to allow evaluation of the LV diastolic function. Right Ventricle The right ventricle is normal size. Right ventricle is mildly hypokinetic. Atria Left atrium is dilated. Lipomatous hypertrophy of atrial septum Right atrium is at the upper limits of normal. Aortic Valve Aortic valve is calcified. No aortic regurgitation is present. There is mild valvular aortic stenosis. Calculated aortic valve area is 1.4 cm2 with maximum pressure gradient of 21 mmHg and mean pressure gradient of 11 mmHg. Mitral Valve Mild-moderate mitral annular calcification. Mild mitral regurgitation. No evidence of mitral valve stenosis. Tricuspid Valve The tricuspid valve is normal in structure. There is moderate to severe tricuspid regurgitation. The right atrial pressure is estimated at 15 mmHg. PAP is estimated at 70 mmHg. Pulmonic Valve Pulmonic valve is not well visualized. There is no [place]mon[place] [address] 2 D/M-MODE ECHOCARDIOGRAM Name: KAMILAH ROWLAND Room #: 246-P ADM IN M.R.#: [id number] Admission: 11/15/16 Attend Phys: Nicol Waters MD Discharge: Date of : 33 Date of Service: 11/17/16 0953 Report #: [id number] Great Vessels The aortic root is normal in size. Aortic arch is not visualized. IVC is dilated and collapses <50% with inspiration. Pericardium There is no pericardial effusion. Moderate left pleural effusion is noted. <Conclusion> Left ventricular systolic function is moderately decreased. LVEF is 40-45%. Distal septal, anterolateral, and apical hypokinesis Left atrium is dilated. Lipomatous hypertrophy of atrial septum Aortic valve is calcified, trileaflet. There is mild valvular aortic stenosis, no insufficiency. Calculated aortic valve area is 1.4 cm2 with maximum pressure gradient of 21 mmHg and mean pressure gradient of 11 mmHg. Mild-moderate mitral annular calcification. Mild mitral regurgitation. Pulmonary artery pressure of 70mmHg There is no pericardial effusion. <ELECTRONICALLY SIGNED> By: Benjamin Alberto MD, [facility] 11/17/16 0953 2 Benjamin Alberto MD, FACC /INF
--- NOTE | ~2016-11-15 | H ---
[facility] [place] [address] HISTORY AND PHYSICAL Name: KAMILAH ROWLAND Room #: 246-P ADM IN M.R.#: [id number] Admission: 11/15/16 Attend Phys: Nicol Waters MD Discharge: Date of : 33 Report #: [id number] THIS REPORT FOR: //name// CC: Shahida Waters DATE OF SERVICE: 11/15/2016 CHIEF COMPLAINT: Respiratory distress and hypoxemia. HISTORY OF PRESENT ILLNESS: The patient is an 81-year-old female who is new to my service at [facility]. She had a rather lengthy hospital stay at [facility] where she had an infected intrathecal pump that was removed with post-procedure course complicated by respiratory failure, sepsis and congestive heart failure. She reportedly passed a video swallow. She was discharged to [facility] earlier this week; however, on the day of admission, nursing staff reported that she had respiratory distress with respiratory rate in the 40s and hypoxemic with oxygen saturation of 83% on 4 liters of oxygen. She was sent to [facility] Emergency Room for evaluation where she was found to have sepsis with hypotension, hypoxemia and acute respiratory failure. She was placed on BiPAP, started on for Levophed, vancomycin and cefepime. She is now admitted in the Intensive Care Unit for further medical management. PAST MEDICAL HISTORY: Could not be elicited from the patient; however, medical records indicate she has chronic back pain that required an intrathecal pump, hypertension, hyperlipidemia, congestive heart failure, dementia, and iron deficiency anemia. ALLERGIES: PENICILLIN. MEDICATIONS: Aricept 10 mg at bedtime, ferrous sulfate 325 mg b.i.d., Plavix 75 mg daily, pravastatin 40 mg at bedtime, quinapril 10 mg daily, Voltaren gel 4 grams topically q.i.d., tramadol 50 mg b.i.d., duloxetine 60 mg daily, milk of magnesia 30 mL daily p.r.n., MiraLax 17 g daily. FAMILY HISTORY: Noncontributory. SOCIAL HISTORY: The patient is . She does not use tobacco or alcohol. REVIEW OF SYSTEMS: Cannot be elicited at this time due to the patient's cognition. PHYSICAL EXAMINATION: GENERAL: The patient is a frail, elderly female, lying in bed on BiPAP, but breathing comfortably and in no apparent distress. [address] [address] HISTORY AND PHYSICAL Name: KAMILAH ROWLAND Room #: 246-P [facility] IN ..#: [id number] Admission: 11/15/16 Attend Phys: Nicol Waters MD Discharge: Date of : 33 Report #: [id number] MOST RECENT VITAL SIGNS: Temperature 36.5, pulse of 101, respiratory rate 24, blood pressure 116/82 on Levophed drip and BiPAP. HEENT: Head is normocephalic, atraumatic. Pupils are equal and reactive. Extraocular muscles could not be assessed. Oropharynx is moist. NECK: Supple. Trachea midline. LUNGS: With diminished breath sounds in bases. CARDIOVASCULAR: Regular rate and rhythm. ABDOMEN: Soft, nontender, nondistended with normoactive bowel sounds. SKIN: Warm and dry. Turgor adequate. LYMPHATICS: No lymphatic or axillary lymphadenopathy. NEUROLOGIC: She is awake, alert, but orientation could not be assessed due to BiPAP. She does have underlying dementia. There are no focal neurologic deficit or lateralizing sign. MUSCULOSKELETAL: Reveals diminished, but equal and symmetric strength throughout without evidence of edema. LABORATORY DATA: Initial labs include CO2 of 36, BUN 21, creatinine 1.5, glucose 160, ALT of 12, albumin of 2.8. Liver function tests are unremarkable. GFR is 39. BNP is 25,514. INR is 1.2. WBC is 25.1, hemoglobin is 13.4, hematocrit is 41.0. Urinalysis shows protein 1+, ketones trace, bilirubin 2+, blood 1+, leukocytes 1+, bacteria few. Arterial blood gas most recent blood gas reveals pH of 7.55, pCO2 of 35, pO2 of 61, oxygen saturation of 94%. RADIOGRAPHIC STUDIES: Include chest x-ray which shows cardiomegaly with lower lung densities bilaterally consistent with infiltrate, focal atelectasis and effusions, greater on the left relative to the right. There is some slight pleural thickening suggesting pleural fluid as well. There is elevated right hemidiaphragm with moderate hepatic flexure distention in the right upper quadrant by the diaphragm. ASSESSMENT: 1. Septic shock. 2. Acute respiratory failure. 3. Pneumonia. 4. Recent methicillin-resistant Staphylococcus aureus infection. 5. Hypotension and leukocytosis due to sepsis. 6. Dementia. PLAN: Admission, continue critical ICU care. Continue Levophed drip and BiPAP. Appreciate ID consultation. We will consult Pulmonary. We will keep n.p.o. NOTE: I had a discussion with her . We discussed diagnosis and treatment plan. He understands the severity of her illness. He wishes to [address] [address] HISTORY AND PHYSICAL Name: KAMILAH ROWLAND Room #: 246-P ADM IN .R.#: [id number] Admission: 11/15/16 Attend Phys: Nicol Waters MD Discharge: Date of : 33 Report #: [id number] continue with Levophed drip and BiPAP, but does not want intubation or chest compression should she continue to decompensate. By: 25 15 Nicol Waters MD /nt
--- NOTE | ~2016-11-15 | EKG ---
[address] [address] ELECTROCARDIOGRAM REPORT Name: KASHIF,KAMILAH SHIN Room #: 246-P ADM IN M.R.#: [id number] Admission: 11/15/16 Attend Phys: Nicol Waters MD Discharge: Date of : 33 Report #: [id number] THIS REPORT FOR: //name// [facility] Test Date: 2016-11-16 Test Time: 07:45:19 Pat Name: KAMILAH ROWLAND Department: Room: 246 P Gender: F Yard Attendant: ANNA : 1935 Requested By: Harley Isaacs Order Number: [id number] MD: Pj Lau Measurements Intervals Stuart Rate: 98 P: 224 NC: 126 QRS: -15 QRSD: 85 T: 131 QT: 374 QTc: 478 Interpretive Statements Ectopic atrial rhythm Borderline left axis deviation Anteroseptal infarct, age indeterminate Compared to ECG 11/15/2016 12:17:30 Myocardial infarct finding now present Possible ischemia no longer present Prolonged QT interval no longer present Electronically Signed On 11-16-2016 10:58:03 CDT by Pj Lau [email or web address] <ELECTRONICALLY SIGNED> By: Pj Lau MD 11/16/16 1058 0745 0745 Pj Lau MD /[facility]
--- NOTE | ~2016-11-15 | HC ---
[facility] [place] [address] CONSULTATION Name: KAMILAH ROWLAND Room #: 211-P ADM IN M.R.#: [id number] Admission: 11/15/16 Attend Phys: Nicol Waters MD Discharge: Date of : 31 Report #: [id number] THIS REPORT FOR: //name// CC: Shahida Waters DATE OF SERVICE: 11/15/2016 REASON FOR CONSULTATION: I was asked to evaluate concerning septic shock and pneumonia. HISTORY OF PRESENT ILLNESS: The patient was an 81-year-old recently discharged from [facility] where she was diagnosed with intrathecal pump site infection due to MRSA. This was complicated by respiratory failure, prolonged intubation, mechanical ventilation for several days. She was recently discharged to the [facility] on vancomycin. She returns now to the Emergency Room with a change in mental status and shortness of breath. She had respiratory rate in the 40s. Upon presentation, she dropped her pressure and has received several liters of IV fluid and has necessitated Levophed drip. She is now in the Intensive Care Unit on a BiPAP mask. She has underlying dementia, Alzheimer's type. She is unable to give any further details. I was able to discuss the case with nursing staff. She was given vancomycin, cefepime and Levaquin in the Emergency Room. PAST MEDICAL HISTORY, FAMILY HISTORY, SOCIAL HISTORY: As noted on her H and P. She does have in addition to her Alzheimer's, she had left total knee arthroplasty, gastroesophageal reflux, shoulder hemiarthroplasty, obstructive sleep apnea, previous TIA and left breast cancer. ALLERGIES: To PENICILLIN. Does tolerate cephalosporins. MEDICATIONS: As noted above. SOCIAL HISTORY: Nonsmoker, no significant alcohol intake. Her family is very involved in her care. She is a DNR. I had discussed the case with palliative care team earlier in the week. The move was to be more of comfort palliative measures in the future, but this is yet to be clearly defined by the family. REVIEW OF SYSTEMS: There has been no nausea, vomiting or diarrhea. She now has an indwelling Spence catheter. There has been no drainage from her back incision. No decubiti. PHYSICAL EXAMINATION: VITAL SIGNS: Afebrile, hemodynamics improved now with a blood pressure 116/82, MAP of 90. She was on BiPAP 100%. GENERAL: She was lethargic, although would arouse and follow simple commands. [facility] [address] [place] [address] CONSULTATION Name: KAMILAH ROWLAND Room #: 211-P [facility] IN M.R.#: [id number] Admission: 11/15/16 Attend Phys: Nicol Waters MD Discharge: Date of : 31 Report #: [id number] Pretty much in the position, otherwise. SKIN: Back incision was well approximated. The erythema has resolved. There is no fluctuance. She has no decubiti noted. HEENT: Unremarkable though her BiPAP mask is in place. NECK: Supple. LUNGS: Basilar crackles bilaterally. She has a left upper extremity PICC. HEART: Regular, without murmur. ABDOMEN: Soft and nontender. LABORATORY STUDIES: Chest x-ray: Cardiomegaly, bilateral lower lobe atelectasis infiltrate, vascular congestion. Blood cultures are pending. Sputum culture has been ordered, but not yet collected. Unclear if she can expectorate at this point in time. Sodium 142, potassium 3.1, bicarbonate of 32, creatinine 1.3 which is above her baseline of 0.8. Liver function test normal. Lactate 1.1. CPK 19, BNP 25,514, hemoglobin 13.4, WBC 25.1, platelet count 305,000, 95% neutrophils, TSH 2.3. Procalcitonin 0.38. Urinalysis, few wbc's, rare rbc's, few bacteria. On 4 liters of oxygen per nasal cannula on admission, her pO2 was 61, pCO2 35, pH 7.55 with a bicarbonate of 30. IMPRESSION AND PLAN: An 81-year-old with healthcare-associated pneumonia and congestive heart failure. With this presentation, I suspect most of this is going to be heart failure. Aspiration would be etiology of her infection problem. Her back seems to be reasonably stable now over a week following explantation of the intrathecal polyp. I would recommend that we continue IV antibiotic therapy with vancomycin in addition to gram-negative coverage. Per my recollection at [facility], her sputum culture had revealed MRSA. We will also treat for heart failure. [place] here overall is very poor for usp survival. Would continue to discuss with family regarding a more appropriate nonaggressive plan of care considering her significant comorbidities and advanced age. <ELECTRONICALLY SIGNED> By: Krunal Hemphill MD 11/24/16 1142 [id number] Krunal Hemphill MD /nt
--- NOTE | ~2016-11-15 | EKG ---
[facility] [place] [address] ELECTROCARDIOGRAM REPORT Name: KAMILAH ROWLAND ANN Room #: [facility]#: [id number] Admission: 11/15/16 Attend Phys: Discharge: Date of : 31 Report #: [id number] THIS REPORT FOR: //name// [facility] ED Test Date: 2016-11-15 Test Time: 12:17:30 Pat Name: KAMILAH ROWLAND Department: Room: Gender: F [employer] Application Consultant: DEMETRICE : 1935 Requested By: Makenzie Hughes Order Number: [id number] MD: Pj Lau Measurements Intervals [place] Rate: 85 P: 215 AK: 124 QRS: -3 QRSD: 80 T: 169 QT: 479 QTc: 570 Interpretive Statements Ectopic atrial rhythm Borderline low voltage, extremity leads Abnormal R-wave progression, early transition Abnrm T, probable ischemia, anterolateral lds Prolonged QT interval Compared to ECG 05/28/2016 22:53:19 Ectopic atrial rhythm now present Possible ischemia now present Prolonged QT interval now present Sinus rhythm no longer present Electronically Signed On 11-15-2016 12:46:36 CDT by Pj Lau [email or web address] <ELECTRONICALLY SIGNED> By: Pj Lau MD 11/15/16 1246 1217 1217 Pj Lau MD /EPI
[~2016-11-15 11:35] MED LIST changes: +IRON325 PO; +MIRALAX17 GM PO; +PEPTO-BISM262 MG/15; +RISAMINE OINTM113 GM; +mylanta
[2016-11-15 12:01] LABS: HEMOGLOBIN 13.4 gm/dL (12.0-15.0); MCH 29.1 pg (26.0-34.0); MCHC 32.6 g/dL (28.0-37.0); MCV 89.2 fL (80.0-100.0); PLATELET COUNT 305 thou/uL (150-400); RDW 16.6 % (10.5-14.5); WBC 25.1 thou/uL (4.0-11.0)
[2016-11-15 12:02] LABS: MANUAL DIFF YES; URINE BILIRUBIN 2+ (Negative); URINE BLOOD 1+ (Negative); URINE COLOR YELLOW; URINE GLUCOSE-RANDOM* NEGATIVE (Negative); URINE KETONES TRACE (Negative); URINE NITRITE NEGATIVE (Negative); URINE PROTEIN (DIPSTICK) 1+ (Negative); URINE SPECIFIC GRAVITY 1.025 (1.003-1.035); URINE UROBILINOGEN 0.2 E.U./dl (0.2-1.0)
[2016-11-15 12:06] LABS: ABG SAMPLE TYPE ARTERIAL; HCO3 30.6 mmol/L (22.0-26.0); LACTATE 1.93 mmol/L (0.5-2.0); O2(CT) 17.5 mL/dL (15.0-23.0); O2Hb 91.8 % (92.0-98.0); PCO2 35.8 mmHg (35.0-45.0); sO2 94.2 % (92.0-98.0); tCO2 31.7 mmol/L (24.0-30.0)
[2016-11-15 12:07] LABS: STICK SITE R.BRACHIAL
[2016-11-15 12:09] LABS: ICTOTEST (BILI CONFIRMATORY) Negative (Negative)
[2016-11-15 12:12] LABS: BACTERIA 1-9 Few /HPF (None Seen); CASTS None Seen /LPF (None Seen); CRYSTALS None Seen /LPF (None Seen); SQUAMOUS 4-10 Moderate /LPF (0-3); URINE RBC 0-2 Rare /HPF (0-2); URINE WBC 6-15 Few /HPF (0-5)
[2016-11-15 12:14] LABS: CALCIUM 9.3 mg/dL (8.5-10.1); CREATININE 1.5 mg/dL (0.6-1.0); POTASSIUM 3.5 mmol/L (3.5-5.1)
[2016-11-15 12:19] LABS: ALBUMIN 2.8 g/dL (3.4-5.0); TOTAL BILIRUBIN 0.7 mg/dL (<0.1-1.0); TOTAL PROTEIN 7.2 g/dL (6.4-8.2); TROPONIN-I 0.04 ng/mL (<0.04-0.07)
[2016-11-15 12:54] LABS: ABSOLUTE NEUTROPHILS 23.8 thou/uL (1.4-8.2); ANISOCYTOSIS 1+; POLYCHROMASIA OCCASIONAL; TOTAL CELL COUNT 100
[2016-11-15 13:34] LABS: INR 1.2
[2016-11-15 14:27] LABS: CALCIUM 7.6 mg/dL (8.5-10.1); CREATININE 1.2 mg/dL (0.6-1.0)
[2016-11-15 14:39] LABS: ABG SAMPLE TYPE VENOUS; HCO3 30.9 mmol/L (22.0-26.0); LACTATE 1.47 mmol/L (0.5-2.0); O2(CT) 11.2 mL/dL (15.0-23.0); O2Hb VENOUS 67.5 (65.0-85.0); PCO2 VENOUS 51.2 mmHg (41.0-51.0); PO2 VENOUS 39.1 mmHg (35.0-45.0); sO2 VENOUS 72.8 % (65.0-85.0); tCO2 32.4 mmol/L (24.0-30.0)
[2016-11-15 14:40] LABS: STICK SITE LAB
[2016-11-15 16:17] LABS: ABG SAMPLE TYPE MIXED VENOUS; BE(vivo) 4.3 mmol/L (-2 to +3); HCO3 30.9 mmol/L (22.0-26.0); LACTATE 1.32 mmol/L (0.5-2.0); O2Hb VENOUS 69.6 (65.0-85.0); PCO2 VENOUS 55.4 mmHg (41.0-51.0); PO2 VENOUS 40.6 mmHg (35.0-45.0); STICK SITE LINE; tCO2 32.6 mmol/L (24.0-30.0)
[2016-11-15 17:23] LABS: ABG SAMPLE TYPE VENOUS; BE(vivo) 3.6 mmol/L (-2 to +3); HCO3 28.9 mmol/L (22.0-26.0); LACTATE 1.25 mmol/L (0.5-2.0); O2(CT) 9.6 mL/dL (15.0-23.0); O2Hb VENOUS 64.5 (65.0-85.0); PCO2 VENOUS 47.2 mmHg (41.0-51.0); PO2 VENOUS 36.2 mmHg (35.0-45.0); STICK SITE LINE; tCO2 30.4 mmol/L (24.0-30.0)
[2016-11-15 17:52] LABS: CALCIUM 7.8 mg/dL (8.5-10.1); CREATININE 1.3 mg/dL (0.6-1.0); POTASSIUM 3.1 mmol/L (3.5-5.1)
[2016-11-15 18:33] LABS: ABG SAMPLE TYPE VENOUS; BE(vivo) 0.9 mmol/L (-2 to +3); HCO3 26.6 mmol/L (22.0-26.0); LACTATE 1.26 mmol/L (0.5-2.0); O2(CT) 10.6 mL/dL (15.0-23.0); O2Hb VENOUS 69.1 (65.0-85.0); PCO2 VENOUS 47.1 mmHg (41.0-51.0); PO2 VENOUS 39.5 mmHg (35.0-45.0); STICK SITE LINE; sO2 VENOUS 72.3 % (65.0-85.0); tCO2 28.1 mmol/L (24.0-30.0)
[2016-11-15 18:34] LABS: ABG COMMENT BIPAP12/6 10 100%; Pressure Support 12 cm H20
[2016-11-15 21:28] LABS: CALCIUM 7.6 mg/dL (8.5-10.1); CREATININE 1.2 mg/dL (0.6-1.0); POTASSIUM 3.7 mmol/L (3.5-5.1)
[2016-11-16] VITALS (88 sets, daily range): BP systolic 95–157; BP diastolic 43–103
[2016-11-16 04:28] LABS: HEMATOCRIT 29.5 % (37.0-47.0); MCH 29.7 pg (26.0-34.0); MCHC 32.8 g/dL (28.0-37.0); MCV 90.8 fL (80.0-100.0); PLATELET COUNT 240 thou/uL (150-400); RBC 3.25 mil/uL (4.20-5.00); RDW 16.9 % (10.5-14.5); WBC 23.6 thou/uL (4.0-11.0)
[2016-11-16 04:42] LABS: ALBUMIN 2.2 g/dL (3.4-5.0); CALCIUM 7.8 mg/dL (8.5-10.1); CREATININE 1.2 mg/dL (0.6-1.0); POTASSIUM 3.3 mmol/L (3.5-5.1); TOTAL BILIRUBIN 0.4 mg/dL (<0.1-1.0); TOTAL PROTEIN 5.6 g/dL (6.4-8.2)
[2016-11-16 05:26] LABS: ABG SAMPLE TYPE ARTERIAL; BE(vivo) 2.7 mmol/L (-2 to +3); HCO3 26.9 mmol/L (22.0-26.0); LACTATE 1.18 mmol/L (0.5-2.0); O2(CT) 14.8 mL/dL (15.0-23.0); O2Hb 95.2 % (92.0-98.0); PCO2 39.8 mmHg (35.0-45.0); Pressure Support 12 cm H20; STICK SITE LRA; pH 7.447 (7.360-7.450); sO2 96.6 % (92.0-98.0); tCO2 28.1 mmol/L (24.0-30.0)
[2016-11-16 05:57] LABS: HEMOGLOBIN 9.7 gm/dL (12.0-15.0); MANUAL DIFF YES
[2016-11-16 10:01] LABS: ABSOLUTE NEUTROPHILS 22.7 thou/uL (1.4-8.2); ANISOCYTOSIS 1+; POLYCHROMASIA OCCASIONAL; TOTAL CELL COUNT 100
[2016-11-16 10:02] LABS: HYPOCHROMASIA SLIGHT
[2016-11-17] VITALS (40 sets, daily range): BP systolic 99–158; BP diastolic 48–91
[2016-11-17 05:32] LABS: ABG SAMPLE TYPE ARTERIAL; BE(vivo) -0.3 mmol/L (-2 to +3); HCO3 23.4 mmol/L (22.0-26.0); LACTATE 1.31 mmol/L (0.5-2.0); O2(CT) 13.5 mL/dL (15.0-23.0); O2Hb 95.9 % (92.0-98.0); PCO2 34.9 mmHg (35.0-45.0); PO2 85.5 mmHg (80.0-100.0); pH 7.445 (7.360-7.450); sO2 96.9 % (92.0-98.0); tCO2 24.5 mmol/L (24.0-30.0)
[2016-11-17 05:33] LABS: Pressure Support 6 cm H20; STICK SITE R.RADIAL
[2016-11-17 06:16] LABS: ABSOLUTE NEUTROPHILS 14.3 thou/uL (1.4-8.2); BASOPHILS 0.5 % (0.0-2.0); EOSINOPHILS 0.7 % (0.0-3.0); HEMATOCRIT 27.7 % (37.0-47.0); HEMOGLOBIN 8.9 gm/dL (12.0-15.0); LYMPHOCYTES 4.8 % (24.0-44.0); MCH 29.4 pg (26.0-34.0); MCHC 32.1 g/dL (28.0-37.0); MCV 91.6 fL (80.0-100.0); MONOCYTES 4.5 % (1.0-8.0); PLATELET COUNT 221 thou/uL (150-400); POLYS 89.5 % (36.0-66.0); RBC 3.03 mil/uL (4.20-5.00); RDW 17.4 % (10.5-14.5)
[2016-11-17 06:29] LABS: INR 1.2; PROTIME 11.8 Seconds (9.3-11.4)
[2016-11-17 06:34] LABS: MANUAL DIFF NO
[2016-11-17 06:35] LABS: ALBUMIN 2.1 g/dL (3.4-5.0); CALCIUM 7.9 mg/dL (8.5-10.1); MAGNESIUM 1.5 mg/dL (1.8-2.4); POTASSIUM 3.2 mmol/L (3.5-5.1); TOTAL BILIRUBIN 0.4 mg/dL (<0.1-1.0); TOTAL PROTEIN 5.6 g/dL (6.4-8.2)
[2016-11-17 18:56] LABS: POTASSIUM 3.5 mmol/L (3.5-5.1)
[2016-11-18] VITALS (22 sets, daily range): BP systolic 120–151; BP diastolic 54–86
[2016-11-18 08:21] LABS: CALCIUM 7.8 mg/dL (8.5-10.1); CREATININE 0.8 mg/dL (0.6-1.0); MAGNESIUM 1.7 mg/dL (1.8-2.4); POTASSIUM 3.3 mmol/L (3.5-5.1)
[2016-11-18 15:52] LABS: MAGNESIUM 2.4 mg/dL (1.8-2.4); POTASSIUM 4.2 mmol/L (3.5-5.1)
[2016-11-19] VITALS (19 sets, daily range): BP systolic 124–202; BP diastolic 67–115
[2016-11-20] VITALS (7 sets, daily range): BP systolic 137–154; BP diastolic 76–97
[2016-11-20 06:16] LABS: HEMATOCRIT 28.3 % (37.0-47.0); HEMOGLOBIN 9.5 gm/dL (12.0-15.0); MCH 30.3 pg (26.0-34.0); MCHC 33.5 g/dL (28.0-37.0); MCV 90.4 fL (80.0-100.0); RBC 3.13 mil/uL (4.20-5.00); RDW 17.1 % (10.5-14.5); WBC 7.6 thou/uL (4.0-11.0)
[2016-11-20 06:25] LABS: CALCIUM 7.9 mg/dL (8.5-10.1); CREATININE 0.8 mg/dL (0.6-1.0); POTASSIUM 3.1 mmol/L (3.5-5.1)
[2016-11-21 02:09] LABS: ABSOLUTE NEUTROPHILS 6.1 thou/uL (1.4-8.2); BASOPHILS 0.9 % (0.0-2.0); EOSINOPHILS 2.3 % (0.0-3.0); HEMATOCRIT 28.7 % (37.0-47.0); HEMOGLOBIN 9.5 gm/dL (12.0-15.0); LYMPHOCYTES 13.3 % (24.0-44.0); MCH 29.5 pg (26.0-34.0); MCHC 33.2 g/dL (28.0-37.0); MONOCYTES 6.2 % (1.0-8.0); PLATELET COUNT 213 thou/uL (150-400); POLYS 77.3 % (36.0-66.0); RBC 3.22 mil/uL (4.20-5.00); RDW 16.6 % (10.5-14.5); WBC 7.9 thou/uL (4.0-11.0)
[2016-11-21 02:11] LABS: MANUAL DIFF NO
[2016-11-21 03:22] VITALS: BP 145/79
[2016-11-21 07:00] VITALS: BP 134/69
[2016-11-21 11:00] VITALS: BP 142/97
[2016-11-21 15:15] VITALS: BP 137/91
[2016-11-21 19:17] VITALS: BP 130/84
[2016-11-22 03:27] LABS: HEMATOCRIT 30.6 % (37.0-47.0); HEMOGLOBIN 10.2 gm/dL (12.0-15.0); MCH 29.6 pg (26.0-34.0); MCHC 33.4 g/dL (28.0-37.0); MCV 88.7 fL (80.0-100.0); RBC 3.45 mil/uL (4.20-5.00); WBC 7.1 thou/uL (4.0-11.0)
[2016-11-22 03:40] LABS: CALCIUM 8.1 mg/dL (8.5-10.1); CREATININE 0.8 mg/dL (0.6-1.0); MAGNESIUM 1.4 mg/dL (1.8-2.4); POTASSIUM 3.7 mmol/L (3.5-5.1)
[2016-11-22 03:54] VITALS: BP 147/91
[2016-11-22 07:10] VITALS: BP 152/91
[2016-11-22 11:20] VITALS: BP 158/100
[2016-11-22 11:40] VITALS: BP 148/87
[2016-11-22 16:00] VITALS: BP 146/101
[2016-11-22 21:42] VITALS: BP 138/82
[2016-11-23 06:53] VITALS: BP 140/79
[2016-11-23 11:15] VITALS: BP 146/89
[2016-11-23 15:40] VITALS: BP 138/83
[2016-11-23 19:17] VITALS: BP 150/85
[2016-11-24 04:02] VITALS: BP 147/78
[2016-11-24 06:55] LABS: HEMATOCRIT 26.6 % (37.0-47.0); MCH 30.1 pg (26.0-34.0); MCHC 33.6 g/dL (28.0-37.0); MCV 89.6 fL (80.0-100.0); RBC 2.97 mil/uL (4.20-5.00); RDW 17.6 % (10.5-14.5); WBC 5.2 thou/uL (4.0-11.0)
[2016-11-24 07:06] LABS: CALCIUM 7.8 mg/dL (8.5-10.1); CREATININE 0.8 mg/dL (0.6-1.0); MAGNESIUM 1.7 mg/dL (1.8-2.4)
[2016-11-24 07:09] LABS: POTASSIUM 2.7 mmol/L (3.5-5.1)
[2016-11-24 08:29] VITALS: BP 153/79
[2016-11-24 12:47] VITALS: BP 145/88
[2016-11-24 15:37] VITALS: BP 147/93
[2016-11-24 20:14] VITALS: BP 146/99
[2016-11-25 03:48] VITALS: BP 156/98
[2016-11-25 08:10] VITALS: BP 170/103
[2016-11-25 11:25] VITALS: BP 142/78
[2016-11-25 15:30] VITALS: BP 140/90
[2016-11-25 20:33] VITALS: BP 160/93
[2016-11-26 03:56] VITALS: BP 140/84
[2016-11-26 06:58] LABS: CALCIUM 8.6 mg/dL (8.5-10.1); POTASSIUM 3.7 mmol/L (3.5-5.1)
[2016-11-26 07:10] LABS: ABG SAMPLE TYPE ARTERIAL; BE(vivo) 4.4 mmol/L (-2 to +3); HCO3 26.9 mmol/L (22.0-26.0); O2(CT) 13.2 mL/dL (15.0-23.0); O2Hb 87.9 % (92.0-98.0); PCO2 32.5 mmHg (35.0-45.0); pH 7.535 (7.360-7.450); sO2 90.7 % (92.0-98.0); tCO2 27.9 mmol/L (24.0-30.0)
[2016-11-26 07:11] LABS: PO2 51.7 mmHg (80.0-100.0)
[2016-11-26 07:12] LABS: STICK SITE R.RADIAL
[2016-11-26 08:21] VITALS: BP 153/101
[2016-11-26] MEDS ORDERED: MIRTAZAPINE7.5 MG PO (08:45)
[2016-11-26] MEDS ORDERED: LASIX 40 MG TAB40 M1 PO (08:46)
[2016-11-26] MEDS ORDERED: KLOR-CON 1010 MEQ PO (08:47)
[2016-11-26 11:51] VITALS: BP 127/78
== END 2016-11-26 14:00 | DRG 871 ==
LOC: ER 11:35 → EROBS 13:00 → ICU 13:00 → 2N 11-19 13:16
PROVIDERS: Internal Medicine; Internal Medicine Pulmonary Disease; Physician Assistant
PROC: B548ZZA Ultrasonography of Superior Vena Cava, Guidance (ICD-10-PCS; 2016-11-15)
PROC: 02HV33Z Insertion of Infusion Device into Superior Vena Cava, Percutaneous Approach (ICD-10-PCS; 2016-11-15)
PROC: 5A09457 Assistance with Respiratory Ventilation, 24-96 Consecutive Hours, Continuous Positive Airway Pressure (ICD-10-PCS; principal; 2016-11-20)
DX: A41.9 Sepsis, unspecified organism (principal); R65.21 Severe sepsis with septic shock; J96.21 Acute and chronic respiratory failure with hypoxia; G93.41 Metabolic encephalopathy; J69.0 Pneumonitis due to inhalation of food and vomit; N17.9 Acute kidney failure, unspecified; E87.3 Alkalosis; E46 Unspecified protein-calorie malnutrition; I42.9 Cardiomyopathy, unspecified; Z96.652 Presence of left artificial knee joint; K21.9 Gastro-esophageal reflux disease without esophagitis; Z96.611 Presence of right artificial shoulder joint; F32.9 Major depressive disorder, single episode, unspecified; I11.0 Hypertensive heart disease with heart failure; I50.9 Heart failure, unspecified; M54.9 Dorsalgia, unspecified; G89.29 Other chronic pain; E78.5 Hyperlipidemia, unspecified; G47.33 Obstructive sleep apnea (adult) (pediatric); D50.9 Iron deficiency anemia, unspecified; I27.2 Other secondary pulmonary hypertension; E87.6 Hypokalemia; G30.1 Alzheimer's disease with late onset; F02.80 Dementia in other diseases classified elsewhere, unspecified severity, without behavioral disturbance, psychotic disturbance, mood disturbance, and anxiety; R13.12 Dysphagia, oropharyngeal phase; E83.42 Hypomagnesemia; Z90.12 Acquired absence of left breast and nipple; Z98.42 Cataract extraction status, left eye; Z98.41 Cataract extraction status, right eye; Z88.0 Allergy status to penicillin; Z86.73 Personal history of transient ischemic attack (TIA), and cerebral infarction without residual deficits; Z85.3 Personal history of malignant neoplasm of breast; Z68.26 Body mass index [BMI] 26.0-26.9, adult
CPT/HCPCS: 10078; 10081; 27000